=== PATIENT | male | born 1995 | race Caucasian/White ===

== ENCOUNTER 2020-05-05 10:56 | Emergency (ER) | payer OTHER, SELFPAY ==
[2020-05-05 11:06] VITALS: BP 154/88; PULSE 77; RESP 12; TEMP 36.9; O2SAT 99
--- NOTE | 2020-05-05 11:28 | ED.NAVMDI ---
HPI - Nausea/Vomiting/Diarrhea General Chief complaint: Nausea/Vomiting/Diarrhea Stated complaint: low temperature Time Seen by Provider: 05/05/20 11:28 Source: patient and RN notes reviewed Mode of arrival: ambulatory Limitations: no limitations History of Present Illness HPI Narrative: 25 year old male who presents to [facility] care with complaints of having low temperature, feeling chilled, back ache, general body aches and episodes of nausea vomiting and diarrhea yesterday. Patient states that he has had no nausea, vomiting or diarrhea today but feels chilled and achy and has had a low body temperature. Patient states that he has had no sore throat, ear pain, cough, nasal congestion or drainage. He states that he was out and about on Monday with friends in bar and september of been exposed to COVID. Patient denies any abdominal pain, no chest pain or pressure or any feelings of shortness of breath. MD elicited complaint: nausea, vomiting and diarrhea Onset (ago): day(s) (1) Description of vomiting: watery Description of diarrhea: watery Associated nausea: No Associated abdominal pain: No Location of pain: other (lower back) Radiation: does not radiate Severity: mild Pain scale (0-10): 3 Quality: aching and other (body aches) Exacerbating factors: none Relieving factors: none Associated symptoms: myalgias, nausea/vomiting and other (chills, back pain, diarrhea yesterday) Treatment prior to arrival: none Related Data Allergies Allergy/AdvReac Type Severity Reaction Status Date / Time No Known Allergies Allergy Verified 05/05/20 11:25 Review of Systems Review of Systems: Narrative: CONSTITUTIONAL: Denies fever, positive chills, or sweats. EYES: Denies visual changes, redness, or discharge. ENT: Denies rhinorrhea, congestion, sore throat, or otalgia. CARDIOVASCULAR: Denies chest pain, palpitations, or edema. RESPIRATORY: Denies cough or dyspnea. GASTROINTESTINAL: Denies abdominal pain, positive episodes of nausea, vomiting, or diarrhea yesterday GENITOURINARY: Denies dysuria or hematuria. SKIN: Denies rash or itching. MUSCULOSKELETAL: Positive lower back pain,no specific joint pain, general body aches NEUROLOGIC: Denies headache, numbness, or weakness. PSYCHIATRIC: Denies anxiety or depression. All systems reviewed & are unremarkable except as noted in HPI and below PMFSH Past Medical History Medical History (Updated 05/05/20 @ 11:53 by Jessica Cabrera NP) Diarrhea Nausea and vomiting Surgical History Surgical History (Updated 05/05/20 @ 12:20 by Jessica Cabrera NP) No history of previous surgery Social History Social History (Updated 05/05/20 @ 12:20 by Jessica Cabrera NP) Smoking status: Never smoker Alcohol intake: current Substance use: never Living arrangements: with friend(s) Gender identity (if verbalized by the patient): Male Comments At time of signature, agree with nursing past medical, surgical, social history. There is no relevant family history pertinent to the presenting complaint Exam Narrative: Exam Narrative: GENERAL: Well-appearing, well-nourished, and in no acute distress. HEAD: Normocephalic, atraumatic. EYES: PERRLA and EOMI. ENT: Nares clear, no rhinorrhea or epistaxis. Mucous membranes moist. TM's normal with good light reflex, throat pink with no lesions or exudates, no tonsil enlargement. NECK: Supple.no lymphadenopathy CHEST: Clear to auscultation. No respiratory distress.SAO2 99% on room air HEART: Regular rate and rhythm. No murmur heard. Normal peripheral pulses. ABDOMEN: Soft, nontender, nondistended, normal active bowel sounds. denies any nausea or vomiting or diarrhea today but symptomatic yesterday, No McBurney point tenderness. EXTREMITIES: Normal range of motion. No edema. SKIN: Warm, dry, no rash. NEURO: No focal deficits. Alert and oriented x3. Course Vital Signs Vital signs: Vital Signs Temperature 36.9 C 05/05/20 11:06 Pulse Rate 77 05/05/20 11
== END 2020-05-05 12:00 | disposition home or self-care (01) ==
PROVIDERS: Emergency Provider Registered Nurse
DX: K52.9 Noninfective gastroenteritis and colitis, unspecified (principal)
CPT/HCPCS: 99213; G0463

== ENCOUNTER 2020-05-05 11:55 | Outpatient (NON) | payer OTHER, SELFPAY ==
[2020-05-05 23:30] LABS: SARS-CoV-2 RNA PCR Positive
== END 2020-05-05 11:56 ==
PROVIDERS: Visit Provider Registered Nurse
DX: U07.1 COVID-19 (principal); R11.2 Nausea with vomiting, unspecified; R19.7 Diarrhea, unspecified
CPT/HCPCS: 87635; C9803; U0003

== ENCOUNTER 2020-05-05 15:45 | Emergency (ER) | payer OTHER, SELFPAY ==
--- NOTE | ~2020-05-05 | XR_ITS ---
EXAMINATION: XR chest 1V portable 05/05/2020 16:37 INDICATION: Dizziness. Weakness. Dyspnea. PROCEDURE: AP portable chest COMPARISON: No prior studies for comparison. FINDINGS: The lungs are clear. The cardiomediastinal silhouette is within normal limits. There are no pleural effusions. There is no pneumothorax suspected. IMPRESSION: 1: NO ACUTE CARDIOPULMONARY DISEASE. Reviewed, dictated and finalized at location A. 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
[2020-05-05 15:58] VITALS: BP 151/96; PULSE 92; RESP 18; TEMP 36.8; O2SAT 100
--- NOTE | 2020-05-05 16:13 | ECG_ITS ---
Measurements Intervals [place] Rate: 81 P: 64 SC: 159 QRS: 53 QRSD: 94 T: 64 QT: 360 QTc: 419 Interpretive Statements SINUS RHYTHM DELAYED PRECORDIAL R/S TRANSITION BORDERLINE ECG Electronically Signed On 05-05-2020 16:18:44 ADMITTING OFFICER by Nain Turk D.O.
[2020-05-05 16:28] LABS: Eosinophils Percent Auto 0.2 % (0-4.4); Hemoglobin 15.1 g/dL (14.0-18.0); Immature Granulocyte Absolute 0.03 K/mm3 (0.00-0.031); Immature Granulocyte Percent A 0.7 % (0-0.5); Lymphocytes Absolute Auto 0.95 K/mm3 (0.9-3.2); Lymphocytes Percent Auto 23.1 % (18.3-44.2); Mean Corpuscular Hemoglobin 30.9 pg (26-34); Mean Corpuscular Volume 85.9 fl (80-100); Monocytes Absolute Auto 0.6 K/mm3 (0.1-0.6); Monocytes Percent Auto 13.6 % (2.6-8.5); Neutrophils Absolute Auto 2.6 K/mm3 (1.3-6.7); Neutrophils Percent Auto 62.4 % (45.5-73.1); Platelet Count Result 175 k/mm3 (150-375); Red Blood Count 4.89 M/mm3 (4.6-6.20); Red Cell Distribution Width 11.8 % (11.5-14.5); White Blood Count 4.1 K/mm3 (4.5-10.0)
[2020-05-05] MEDS: SODIUM CHLORIDE 0.9% IV 1,000 ML 999 ML IV CONT (16:32)
--- NOTE | 2020-05-05 16:36 | PC.NURSE ---
PT HORTENCIA 98 AT THIS TIME, PT EATING SOUP AND GRILLED CHEESE, AT BEDSIDE COAXING HER TO EAT.
[2020-05-05 16:40] LABS: Alanine Aminotransferase 74 U/L (4-50); Albumin Level 4.4 g/dL (3.5-5.1); Alkaline Phosphatase 80 U/L (38-126); Anion Gap 9 mmol/L (8-16); Aspartate Amino Transferase 47 U/L (17-59); Bilirubin,Total 0.5 mg/dL (0.2-1.3); Blood Urea Nitrogen 11 mg/dL (9-20); Carbon Dioxide 27 mmol/L (22-30); Chloride 102 mmol/L (98-107); Estimated CRCL calculation 137 ml/min; Estimated Glomerular Filt Rate > 60; Glucose 149 mg/dL (75-110); Potassium 3.8 mmol/L (3.4-5.0); Sodium 138 mmol/L (137-145)
[2020-05-05 16:54] LABS: Add Urine Microscopic? NO; Appearance Urine Clear (Clear); Bilirubin Urine Negative (Negative); Blood Urine Negative (Negative); Color Urine Colorless (Yellow); Glucose Urine UA Negative (Negative); Ketones Urine Negative (Negative); Leukocyte Esterase Ur Negative LEU/UL (Negative); Nitrate Urine Negative (Negative); Protein Urine Negative (Negative); RBC Urine 0-2 /hpf (0-2); Specific Grav Ur 1.005 (1.001-1.035); Urobilinogen Urine Negative mg/dL (<2.0); WBC Urine 0-3 /hpf
--- NOTE | 2020-05-05 17:03 | ED.GENADULT ---
HPI - General Adult General Chief complaint: Dizziness Stated complaint: Low temperature,light-headed,Covid tested today Time Seen by Provider: 05/05/20 15:59 Source: patient Mode of arrival: ambulatory Limitations: no limitations History of Present Illness HPI narrative: Patient presents for evaluation after being Covid tested because he took his temperature at home and states that it was documented at 95 ?F. Patient states that his symptoms began 2 days ago with fatigue and he did have a few hours of nausea and vomiting which resolved. Patient denies fever, chills, syncope, chest pain, shortness of breath, congestion or headache. Patient denies any changes in vision or hearing. He denies any chronic medical conditions, daily medications, or medication allergies. Related Data Allergies Allergy/AdvReac Type Severity Reaction Status Date / Time No Known Allergies Allergy Verified 05/05/20 11:25 Review of Systems Review of Systems: Narrative: CONSTITUTIONAL: Reports fatigue denies fever, chills, or sweats. EYES: Denies visual changes, redness, or discharge. ENT: Denies rhinorrhea, congestion, sore throat, or otalgia. CARDIOVASCULAR: Denies chest pain, palpitations, or edema. RESPIRATORY: Denies cough or dyspnea. GASTROINTESTINAL: Reports resolved nausea and vomiting denies abdominal pain or diarrhea. GENITOURINARY: Denies dysuria or hematuria. SKIN: Denies rash or itching. MUSCULOSKELETAL: Denies back pain, joint pain, or myalgia. NEUROLOGIC: Denies headache, numbness, dizziness, or weakness. PSYCHIATRIC: Denies anxiety or depression. [facility] Past Medical History Medical History (Updated 05/05/20 @ 17:08 by Cheyenne Dumont PA-C) Diarrhea Nausea and vomiting Surgical History Surgical History (Updated 05/05/20 @ 12:20 by Jessica Cabrera NP) No history of previous surgery Social History Social History (Updated 05/05/20 @ 12:20 by Jessica Cabrera NP) Smoking status: Never smoker Alcohol intake: current Substance use: never Gender identity (if verbalized by the patient): Male Exam Narrative: Exam Narrative: GENERAL: Well-appearing, well-nourished, and in no acute distress. Patient does not appear toxic or cyanotic HEAD: Normocephalic, atraumatic. EYES: PERRLA and EOMI. CHEST: Clear to auscultation. No respiratory distress. No wheezes rales or rhonchi HEART: Regular rate and rhythm. No murmur heard. Normal peripheral pulses. ABDOMEN: Soft, nontender, nondistended, normal active bowel sounds. EXTREMITIES: Normal range of motion. No edema. SKIN: Warm, dry, no rash. NEURO: No focal deficits. Alert and oriented x3. Speaking without difficulty PSYCH: Normal mood and affect. Course Vital Signs Vital signs: Vital Signs Temperature 98.2 F 05/05/20 15:58 Pulse Rate 92 05/05/20 15:58 Respiratory Rate 18 05/05/20 15:58 Blood Pressure 151/96 H 05/05/20 15:58 Pulse Oximetry 100 05/05/20 15:58 Temperature 98.2 F 05/05/20 15:58 Pulse Rate 92 05/05/20 15:58 Respiratory Rate 18 05/05/20 15:58 Blood Pressure 151/96 H 05/05/20 15:58 Pulse Oximetry 100 05/05/20 15:58 Medical Decision Making MDM Narrative Medical decision making narrative: Patient vitals are stable and lab work is insignificant. Patient instructed to go home and quarantine himself while symptomatic and awaiting his Covid test results. Patient instructed to follow-up with his primary care for further investigation. Patient to return to emergency department if he develops any emergent symptoms. Vital Signs Vital Signs: Vital Signs Temperature 98.2 F 05/05/20 15:58 Pulse Rate 92 05/05/20 15:58 Respiratory Rate 18 05/05/20 15:58 Blood Pressure 151/96 H 05/05/20 15:58 Pulse Oximetry 100 05/05/20 15:58 Temperature 98.2 F 05/05/20 15:58 Pulse Rate 92 05/05/20 15:58 Respiratory Rate 18 05/05/20 15:58 Blood Pressure 151/96 H 05/05/20 15:58 Pulse Oximetry 100 05/05/20 15:58
[2020-05-05 17:04] VITALS: BP 141/84; PULSE 73
[2020-05-05 17:05] VITALS: BP 144/78; PULSE 83
[2020-05-05 17:06] VITALS: BP 130/82; PULSE 87
[2020-05-05 17:31] VITALS: BP 130/82; PULSE 73; RESP 19; TEMP 37.1; O2SAT 100
--- NOTE | 2020-05-16 17:00 | PC.NURSE ---
LATE ENTRY This note is being entered to document information to the patient's record. The following information was omitted on [05/05/20], by [Brad Gonzalez. NS Stop time 1459].
== END 2020-05-05 17:32 | disposition home or self-care (01) ==
PROVIDERS: Physician Assistant; Emergency Provider Emergency Medicine
DX: B34.9 Viral infection, unspecified (principal); Z20.828 Contact with and (suspected) exposure to other viral communicable diseases; R94.31 Abnormal electrocardiogram [ECG] [EKG]
CPT/HCPCS: 36415; 71045; 80053; 81003; 85025; 87804; 93005; 96360; 99283; C9803; J7030; U0003

== ENCOUNTER 2020-11-16 10:11 | Emergency (ER) | payer OTHER, SELFPAY ==
--- NOTE | ~2020-11-16 | XR_ITS ---
EXAMINATION: XR chest 2V DATE: 11/16/2020 10:32 INDICATION: Midline chest pain TECHNIQUE: PA and lateral views of the chest are obtained. COMPARISON: 05/05/2020 FINDINGS: The lungs are free of acute opacities. There is no pleural effusion or pneumothorax. The ca rdiomediastinal silhouette is normal. The visualized bones and soft tissues are unremarkable. IMPRESSION: 1. No acute cardiopulmonary abnormality. Reviewed, dictated and finalized at location A.
[2020-11-16 10:17] VITALS: BP 155/76; PULSE 80; RESP 20; TEMP 36.7; O2SAT 99
--- NOTE | 2020-11-16 10:17 | ECG_ITS ---
Measurements Intervals [place] Rate: 67 P: 49 WI: 172 QRS: 62 QRSD: 89 T: 54 QT: 386 QTc: 409 Interpretive Statements SINUS RHYTHM BASELINE ARTIFACT- II, III, AVR ,AVF, V1-6 NORMAL ECG Electronically Signed On 11-16-2020 11:14:32 CDT by Nain Turk D.O.
[2020-11-16 10:21] VITALS: PULSE 80
[2020-11-16 10:27] LABS: Basophils Percent Auto 0.2 % (0.2-1.2); Eosinophils Absolute Auto 0.1 K/mm3 (0-0.3); Eosinophils Percent Auto 0.9 % (0-4.4); Hematocrit 44.5 % (42.0-52.0); Hemoglobin 15.5 g/dL (14.0-18.0); Immature Granulocyte Absolute 0.03 K/mm3 (0.00-0.031); Immature Granulocyte Percent A 0.3 % (0-0.5); Lymphocytes Absolute Auto 1.83 K/mm3 (0.9-3.2); Mean Corpuscular HGB Conc 34.8 g/dl (32-36); Mean Corpuscular Hemoglobin 30.3 pg (26-34); Mean Corpuscular Volume 87.1 fl (80-100); Mean Platelet Volume 9.1 fl (7.4-10.4); Monocytes Absolute Auto 0.7 K/mm3 (0.1-0.6); Monocytes Percent Auto 7.6 % (2.6-8.5); Neutrophils Absolute Auto 6.5 K/mm3 (1.3-6.7); Platelet Count Result 257 k/mm3 (150-375); Red Blood Count 5.11 M/mm3 (4.6-6.20); White Blood Count 9.2 K/mm3 (4.5-10.0)
[2020-11-16 10:42] LABS: Anion Gap 12 mmol/L (8-16); Blood Urea Nitrogen 12 mg/dL (9-20); Calcium 9.8 mg/dL (8.4-10.2); Carbon Dioxide 23 mmol/L (22-30); Chloride 105 mmol/L (98-107); Estimated CRCL calculation 137 ml/min; Estimated Glomerular Filt Rate > 60; Glucose 126 mg/dL (75-110); Potassium 3.4 mmol/L (3.4-5.0); Sodium 140 mmol/L (137-145)
--- NOTE | 2020-11-16 10:49 | ED.CHESTPAIN ---
HPI - Chest Pain General Chief Complaint: Chest Pain Stated Complaint: Chest Pain Time Seen by Provider: 11/16/20 10:39 Source: patient Mode of arrival: ambulatory Limitations: no limitations History of Present Illness HPI narrative: Patient is a 25-year-old male complaining of chest discomfort described as freezing sensation on substernal/epigastric, mild, nonradiating started this morning. Patient denies any shortness of breath, abdominal pain, nausea, vomiting, diaphoresis, fever or chills. Patient admits to drinking alcohol last night and had little to eat. Related Data Allergies Allergy/AdvReac Type Severity Reaction Status Date / Time No Known Allergies Allergy Verified 05/05/20 11:25 Review of Systems Review of Systems: All systems reviewed & are unremarkable except as noted in HPI and below Constitutional: Constitutional: Denies body ache(s), Denies chills, Denies excessive sweating, Denies fatigue, Denies fever(s), Denies headache(s), Denies lethargy, Denies malaise, Denies weakness and Denies weight loss Eyes: Eyes: Denies blurry vision, Denies change in vision and Denies loss of vision ENT: Denies dizziness, Denies ear discharge, Denies headache(s), Denies lip swelling, Denies epistaxis, Denies nasal congestion, Denies neck pain, Denies throat swelling and Denies tongue swelling Cardiovascular: Cardiovascular: Denies chest pain, Denies chest pain at rest, Denies diaphoresis, Denies rapid heart rate, Denies edema, Denies irregular heart rhythm, Denies lightheadedness, Denies palpitations, Denies dyspnea and Denies dyspnea on exertion Respiratory: Respiratory: Denies chest congestion, Denies cough, Denies hemoptysis, Denies dyspnea and Denies dyspnea on exertion Gastrointestinal: Gastrointestinal: Denies abdominal pain, Denies melena, Denies hematochezia, Denies diarrhea, Denies nausea, Denies vomiting and Denies hematemesis Musculoskeletal: Musculoskeletal: Denies abnormal gait, Denies deformity, Denies joint swelling, Denies limited range of motion, Denies neck pain and Denies numbness Neurologic: Denies Abnormal speech present, Denies abnormal gait, Denies confusion, Denies dizziness, Denies headache(s), Denies focal weakness, Denies loss of vision, Denies numbness, Denies Other visual disturbances, Denies Sensory deficit (Neuro) and Denies weakness Psychiatric: Psychiatric: Denies confusion, Denies depression, Denies auditory hallucinations, Denies homicidal ideation and Denies suicidal ideation Endocrine: Endocrine: Denies cold intolerance, Denies excessive sweating, Denies fatigue, Denies heat intolerance and Denies palpitations Hematologic/Lymphatic: Hematologic/Lymphatic: Denies easy bleeding and Denies easy bruising Allergic/Immunologic: Allergic/Immunologic: Denies lip swelling, Denies throat swelling and Denies tongue swelling PMFSH Past Medical History Medical History (Updated 11/16/20 @ 12:39 by Paul Joe MD) Diarrhea Nausea and vomiting Surgical History Surgical History (Updated 05/05/20 @ 12:20 by Jessica Cabrera NP) No history of previous surgery Social History Social History (Updated 05/05/20 @ 12:20 by Jessica Cabrera NP) Smoking status: Never smoker Alcohol intake: current Substance use: never Gender identity (if verbalized by the patient): Male Comments Past medical history: None Family history: Negative for OH or coronary artery disease Social history: Non-smoker, occasional EtOH use, denies any drug use Exam Const: General: cooperative, healthy appearing, comfortable, no acute distress, well developed, alert and awake; No confusion Orientation/consciousness: oriented to person, oriented to place, oriented to time, patient oriented x3 and No confusion Limitations: no limitations HENMT: Head: normal to inspection, normocephalic and atraumatic Ears: hearing grossly normal bilaterally, TM normal on the right and TM normal on the left General nose exam: N
[2020-11-16 10:54] LABS: Troponin I < 0.012 ng/mL (0.000-0.034)
[2020-11-16] MEDS: ASPIRIN 81 MG CHEWABLE TABLET 324 MG PO (11:05)
[2020-11-16 11:18] LABS: INR 1.1; Partial Thromboplastin Time 25.7 SECONDS (22.3-36.8); Prothrombin Time 13.7 Seconds (11.1-14.7)
[2020-11-16 12:13] VITALS: BP 146/83; PULSE 66; RESP 13; TEMP 36.3; O2SAT 99
[2020-11-16 13:10] VITALS: BP 135/98; PULSE 73; RESP 13; TEMP 36.6; O2SAT 99
== END 2020-11-16 13:13 | disposition home or self-care (01) ==
PROVIDERS: Emergency Provider Emergency Medicine
DX: R07.89 Other chest pain (principal)
CPT/HCPCS: 36415; 71046; 80048; 84484; 85025; 85610; 85730; 93005; 99284; A9270